=== PATIENT | female | born 1990 | race Caucasian/White ===

== ENCOUNTER 2025-06-09 21:14 | Emergency (ER) | payer OTHER, SELFPAY ==
[2025-06-09 21:23] VITALS: BP 122/64; PULSE 66; O2SAT 99
[2025-06-09 21:38] VITALS: BP 158/80; PULSE 68; RESP 18; TEMP 36.6; O2SAT 100; BMI 35.1
--- OUTSIDE RECORDS SUMMARY | 2025-06-09 22:21 | XMS_ITS | Clinical Summary ---
Author Organization [facility] Address [address] [place] [address] Phone Care Team Providers Care Medical Editor Name Role Phone Asha Castillo MD Primary Care Provider + Asha Castillo MD Unavailable [phone] Social History Tobacco Use Types Packs/Day Years Used Date Smoking Tobacco: Never Assessed Comments Unknown Sex and Gender Information Value Date Recorded Sex Assigned at Not on file Legal Sex Female 6:47 PM EDT Gender Identity Not on file Sexual Orientation Not on file Plan of Treatment Not on file Care Teams Medical Editor Relationship Specialty Start Date End Date Asha Castillo MD [address] [place] [id number] PCP - General 05/10/08 Asha Castillo MD [address] [place] [id number] PCP - Insurance PCP 05/10/08
--- OUTSIDE RECORDS SUMMARY | 2025-06-09 22:21 | XMS_ITS | Clinical Summary ---
Author Organization [facility] Address [address] [place] [address] Care Team Providers Care Barrel Lathe Operator Inside Name Role Phone Add, Provider Not In System Primary Care Provide r Unavailable Allergies Active Allergy Reactions Criticality Noted Date Comments Coconut Anaphylaxis High 05/02/2024 Erythromycin Rash Low 05/02/2024 Haloperidol Rash Low 05/02/2024 Kiwi Itching High 05/02/2024 Veneta Itching High 05/02/2024 Penicillin G Rash Low 05/02/2024 Tree Nuts Anaphylaxis High 05/02/2024 Oxcarbazepine Rash Low 05/02/2024 Social History Tobacco Use Types Packs/Day Years Used Date Smoking Tobacco: Never Assessed Comments No Sex and Gender Information Value Date Recorded Sex Assigned at Not on file Legal Sex Female 9:29 PM EDT Gender Identity Female 05/02/2024 2:24 PM EDT Sexual Orientation Bisexual 05/02/2024 2: 26 PM EDT Last Filed Vital Signs Vital Sign Reading Time Taken Comments Blood Pressure 121/68 05/02/2024 4:36 PM EDT Pulse 61 05/02/2024 4:36 PM EDT Temperature 36.7 C (98.1 F) 05/02/2024 2:11 PM EDT Respiratory Rate 18 05/02/2024 4:36 PM EDT Oxygen Saturation 100% 05/02/2024 4:36 PM EDT Inhaled Oxygen Concentration - - Weight 62.1 kg (137 lb) 05/02/2024 2:11 PM EDT Height - - Body Mass Index - - Plan of Treatment Not on file Insurance [facility] [place] [id number] Care Teams Barrel Lathe Operator Inside Relationship Specialty Start Date End Date Add, Provider Not In System PCP - General 11/14/06
--- NOTE | 2025-06-09 22:33 | ED_ITS ---
HPI - Female Genitourinary General Chief complaint: Urogenital-Female Stated complaint: Urinary retention Time Seen by Provider: 06/09/25 22:31 Source: patient and EMS Mode of arrival: EMS Limitations: no limitations History of Present Illness ED Provider: Brandon WEBER HPI Narrative: The patient is a 34-year-old female with a history of mental health disorder presenting to the ED from [facility] for evaluation of urinary retention. The patient reports she has experienced episodes of urinary retention often requiring 3-4 weeks of catheterization approximately 3 times a year for the past few years. Patient reports she has attempted to follow up with the Urology in the past but often fails to do so due to psychiatric inpatient admissions. The patient reports she has been able to urinate since Friday 06/08 at 17:00. The patient reports attempting to urinate without success, reports gradually worsening lower abdominal pain without associated fever/chills, nausea, vomiting, diarrhea, chest pain, shortness of breath, recent sick contacts, or recent trauma. The patient does advised she was told by me harvested they are unable to manage a Mcdonough catheter at that facility and she may require admission to a different facility while a Mcdonough catheter is in place. Related Data Home Medications ?Medication ?Instructions ?Recorded ?Confirmed acetaminophen 325 mg tablet 650 mg PO Q4H PRN Mild Cheyenne n (Scale 06/10/25 06/10/25 Score 1-4) albuterol sulfate 90 mcg/actuation 2 puff inhalation B ID PRN 06/10/25 06/10/25 aerosol inhaler Shortness Of Breath atomoxetine 40 mg capsule 40 mg PO DAILY 06/10/2504/27 buspirone 10 mg tablet 20 mg PO BEDTIME 06/10/25 calcium carbonate 500 mg PO Q4H PRN Heartburn 06/10/25 06/10/25 clonidine HCl 0.1 mg tablet 0.1 mg PO DAILY PRN Anxiet y 06/10/25 06/10/25 docusate sodium 100 mg tablet 100 mg PO DAILY PRN Cons tipation 06/10/25 06/10/25 gabapentin 300 mg capsule 300 mg PO DAILY 06/10/2504/27 guaifenesin 600 mg tablet, 1,200 mg PO Q12H PRN Cough 06/10/25 06/10/25 extended release 12 hr hydroxyzine pamoate 50 mg capsule 50 mg PO QID PRN Anx iety 06/10/25 06/10/25 lamotrigine 150 mg tablet 300 mg PO BEDTIME 06/10/25 0 06/10/25 loratadine 10 mg tablet 10 mg PO DAILY 06/10/2504/27 lurasidone 20 mg tablet 40 mg PO BEDTIME 06/10/25 melatonin 5 mg tablet 5 - 10 mg PO BEDTIME PRN ins omnia 06/10/25 06/10/25 ondansetron 8 mg disintegrating 8 mg PO TID PRN nausea 06/10/25 06/10/25 tablet pantoprazole 40 mg tablet,delayed 40 mg PO DAILY 06/1006/10/25 release prazosin 5 mg capsule 5 mg PO BEDTIME 06/10/2504/27 sennosides 8.6 mg tablet (senna) 17.2 mg PO DAILY PRN Constipation 06/10/25 06/10/25 Allergies Allergy/AdvReac Type Severity Reaction Status Date / Time azithromycin Allergy Unknown Verified 06/09/25 21:39 haloperidol (From Haldol) Allergy Unknown Verified 06/09/25 21:39 meloxicam Allergy Unknown Verified 06/09/25 21:39 Penicillins Allergy Unknown Verified 06/09/25 21:39 lithium AdvReac Unknown Verified 06/09/25 21:50 oxcarbazepine (From AdvReac Unknown Verified 06/09/25 21:50 Trileptal) Review of Systems 2 Review of Systems: Yes all other systems are reviewed and are negative PMFSH Social History Social History Use of substances other than those prescribed or required for medical reasons: No Advance Directives: No Advance Directives Information Provided: No Patient : No Physical Exam 2 Vital Signs: Vital Signs: Last Vital Signs Temp 98.2 F 06/11/25 05:38 Pulse 82 06/11/25 05:38 Resp 16 06/11/25 05:38 BP 121/63 06/11/25 05:38 Pulse Ox 97 06/11/25 05:38 O2 Del Method Room Air 06/11/25 05:38 BMI result Body Mass Index 35.1 CONSTITUTIONAL: The patient appears non-toxic, well nourished and in no acute distress. Vital signs as documented. HEAD: Atraumatic, normocephalic. EYES: EOMs grossly intact, pupils equal, conjunctiva clear, no exudate. ENT: Nares patent, no discharge. Airway patent, no audible stridor, visible mucosa is pink and moist without noted lesions. NECK: Trachea is midline, no obvious masses or gross abnormalities. CHEST: Symmetric movement, normal appearance. LUNGS: LS present and CTAB, no w/r/r. Non-labored work of breathing. CARDIAC: Regular Rhythm, S1/S2 appreciated, no murmurs, rubs or gallops. ABDOMEN: Abdomen soft and non-tender x4 quadrants, exam performed after bladder scan with subsequent Mcdonough catheter placement. No palpable masses or organomegaly. : Deferred. EXTREMITIES: Normal tone, moves all extremities spontaneously without reported pain. No obvious acute injury or deformity noted. NEURO: Alert and oriented x3, CN II-XII appear grossly intact. Cerebellar Functioning grossly intact. No obvious sensory or motor deficits. Speech clear and appropriate. PSYCH: Mildly anxious affect, appropriate eye contact, pressured speech, with some tangential speech process but otherwise appropriate response to questioning. No reported suicidality or homicidality. SKIN: Warm, dry, color appropriate, normal turgor. No rashes noted. Course Reevaluation(s) Reevaluation #1: Crisis team requested psych consult Time: 10:36 Reevaluation #2: 11:25 AM 06/10/2025 (Dr. John Wu): Meds ordered Time: :25 Reevaluation #3: 9:25 AM 06/11/2025 (Dr. John Wu): Cleared for discharge Time: : Medications Administered Generic Name Dose Route Start Last Admin Trade Name Freq PRN Reason Stop Dose Admin Acetaminophen 650 mg 06/10/25 11:24 06/10/25 22:05 Acetaminophen 325 Mg Tablet PO 650 mg Q4H PRN Administration Mild Pain (Scale Score 1-4) Buspirone HCl 20 mg 06/10/25 21:00 06/10/25 21:58 Buspirone Hcl 10 Mg Tablet PO 20 mg BEDTIME LI Administration Clonidine HCl 0.1 mg 06/10/25 11:24 06/10/25 12:21 Clonidine Hcl 0.1 Mg Tablet PO 0.1 mg DAILY PRN Administration Anxiety Protocol Gabapentin 300 mg 06/10/25 12:00 06/10/25 12:21 Gabapentin 300 Mg Capsule PO 300 mg DAILY LI Administration Hydroxyzine HCl 50 mg 06/10/25 11:24 06/10/25 22:01 Hydroxyzine Hcl 50 Mg Tablet PO 50 mg QID PRN Administration Anxiety Lamotrigine 300 mg 06/10/25 13:00 06/10/25 12:20 Lamotrigine 100 Mg Tablet PO 300 mg BEDTIME LI Administration Lurasidone HCl 40 mg 06/10/25 21:00 06/10/25 21:59 Lurasidone Hcl 40 Mg Tablet PO 40 mg BEDTIME LI Administration Melatonin 6 mg 06/10/25 12:00 06/10/25 21:58 Melatonin 3 Mg Tablet PO 6 mg BEDTIME PRN Administration insomnia Nicotine Polacrilex 2 mg 06/10/25 10:10 06/11/25 05:44 Nicotine Polacrilex 2 Mg Gum BUCCAL 2 mg Q2H PRN Administration Nicotine Cravings Prazosin HCl 5 mg 06/10/25 21:00 06/10/25 23:03 Prazosin Hcl 5 Mg Capsule PO 5 mg BEDTIME LI Administration Protocol Discontinued Medications Generic Name Dose Route Start Last Admin Trade Name Freq PRN Reason Stop Dose Admin Lorazepam 1 mg 06/10/25 01:42 06/10/25 01:55 Lorazepam 1 Mg Tablet PO 06/10/25 01:43 1 mg ONCE ONE Administration Medical Decision Making Medical Decision Making MDM Narrative: 11:52 PM 06/09/2025 (Sadia WEBER): The patient is a 34-year-old female presenting to the ED for evaluation of acute urinary retention which she states has occurred 2-3 times annually for the past few years, however she has been unable to follow up with Urology due to recurrent psychiatric inpatient admissions. The patient presents to the ED today from [facility] for evaluation of inability urinate since 17:00 on Wednesday. The patient arrived to the ED with a bladder scan of 1100, Mcdonough catheter was placed and patient reports significant improvement in pain. On exam patient has no abdominal tenderness, patient is nontoxic appearing. Patient will be sent for UA, and basic laboratory evaluation. Pending unremarkable laboratory evaluation the patient may require crisis team consultation to facilitate returned to [facility] versus placement at a inpatient psychiatric facility capable of managing Mcdonough catheters. Admission/Observation Consideration of admission/observation: Escalation of care including admission/observation considered Lab Data 06/09/25 23:46 06/10/25 00:10 Labs: Lab Results 06/09/25 06/10/25 06/10/25 Range/Units 23:46 00:10 00:45 WBC 9.4 (4.8-10.8) X10*3/uL RBC 5.31 (4.20-5.50) X10*6/uL Hgb 14.6 (12.0-16.0) g/dl Hct 44.0 (37.0-47.0) % MCV 82.9 (80.0-98.0) fL MCH 27.5 (27.0-33.0) pg MCHC 33.2 (31.0-35.0) g/dl RDW 15.6 (11.0-16.0) % Plt Count 199 (160-400) X10*3/uL MPV 10.9 (9.4-12.3) fL Immature Gran % (Auto) 0.4 (0.0-0.4) % Neut % (Auto) 75.5 H (45-73) % Lymph % (Auto) 17.0 L (20-40) % Gladwin % (Auto) 6.0 (2-11) % Eos % (Auto) 0.6 (0-4) % Baso % (Auto) 0.5 (0-2) % Lymph # (Auto) 1.6 (1.2-4.9) X10*3/uL Gladwin # (Auto) 0.6 (0.1-1.2) X10*3/uL Eos # (Auto) 0.1 (0.0-0.4) X10*3/uL Baso # (Auto) 0.1 (0.0-0.2) X10*3/uL Abs Immat Gran (auto) 0.04 H (0.00-0.03) X10*3/uL Absolute Neuts (auto) 7.1 (2.0-8.3) x10*3/uL Absolute Nucleated RBC 0.000 (0.0-0.012) X10*3/uL Nucleated RBC % (auto) 0.0 (0.0-0.2) /100WBC Smear Tech's Comments VERIFIED Sodium 141 (135-145) mmol/L Potassium 3.8 (3.3-5.1) mmol/L Chloride 110 H (96-108) mmol/L Carbon Dioxide 20 L (22-29) mmol/L Anion Gap 15 (12-20) BUN 12 (9-16) mg/dL Creatinine 0.81 (0.5-1.4) mg/dL Estim Creat Clear Calc 93.4 Estimated GFR > 60 Random Glucose 84 (60-115) mg/dL Calcium 9.5 (8.4-10.2) mg/dL Total Bilirubin 0.2 (0.0-1.0) mg/dL AST 17 (5-31) U/L ALT 19 (0-31) U/L Alkaline Phosphatase 82 (39-117) U/L Total Protein 7.5 (6.5-8.0) g/dL Albumin 4.8 (3.5-5.0) g/dL Urine Color Yellow Urine Appearance Clear Urine pH 7.0 (5.0-9.0) Ur Specific Woodlyn <= 1.005 (1.005-1.025) Urine Protein Negative (Neg-Trace) mg/dL Urine Glucose (UA) Negative (Negative) mg/dL Urine Ketones Negative (Negative) mg/dL Urine Blood Negative (Negative) Urine Nitrite Negative (Negative) Ur Leukocyte Esterase Negative (Negative) Discharge Plan Discharge Clinical Impression: Acute urinary retention Patient Disposition: Home, Self-Care Instructions: Neurogenic Bladder (ED) Additional Instructions: Evaluated with urinary retention of holding more than 1 L of urine, Mcdonough catheter was placed in ER, evaluated by crisis team and cleared for discharge Mcdonough catheter care on outpatient basis by patient/re-evaluation by PCP or urologist, urinary retention maybe due to multiple medications You were seen in our Emergency Department today for treatment of a behavioral health issue. It is important after your visit that you follow up with either your behavioral health provider or a primary care doctor within 7 days.? If you have trouble finding a therapist you can reach out to [address] [phone] The National Suicide and Crisis Lifeline can be reached 7 days a week 24 hours a day.? Call 988 to speak with someone.? Return for any worsening symptoms or concerns such as thoughts of self harm or harm to others. Please call 911 if you feel your mental health is worsening.? Prescriptions: No Action lamotrigine 150 mg tablet 300 mg PO BEDTIME sennosides [senna] 8.6 mg tablet 17.2 mg PO DAILY PRN (Reason: Constipation) clonidine HCl 0.1 mg tablet 0.1 mg PO DAILY PRN (Reason: Anxiety) acetaminophen 325 mg Tablet 650 mg PO Q4H PRN (Reason: Mild Pain (Scale Score 1-4)) hydroxyzine pamoate 50 mg Capsule 50 mg PO QID PRN (Reason: Anxiety) ondansetron 8 mg tablet,disintegrating 8 mg PO TID PRN (Reason: nausea) prazosin 5 mg capsule 5 mg PO BEDTIME pantoprazole 40 mg Tablet,Delayed Release (Dr/Ec) 40 mg PO DAILY buspirone 10 mg tablet 20 mg PO BEDTIME gabapentin 300 mg capsule 300 mg PO DAILY calcium carbonate 500 mg calcium (1,250 mg) Tablet,Chewable 500 mg PO Q4H PRN (Reason: Heartburn) albuterol sulfate 90 mcg/actuation Hfa Aerosol Inhaler 2 puff INHALATION BID PRN (Reason: Shortness Of Breath) docusate sodium 100 mg Tablet 100 mg PO DAILY PRN (Reason: Constipation) loratadine 10 mg Tablet 10 mg PO DAILY atomoxetine 40 mg Capsule 40 mg PO DAILY melatonin 5 mg tablet 5 - 10 mg PO BEDTIME PRN (Reason: insomnia) lurasidone 20 mg tablet 40 mg PO BEDTIME guaifenesin 600 mg Tablet Extended Release 12hr 1,200 mg PO Q12H PRN (Reason: Cough) Print Language: Lebanese
[2025-06-09 23:57] LABS: Hematocrit 44.0 % (37.0-47.0); Hemoglobin 14.6 g/dl (12.0-16.0); Imm Gran Abs Auto 0.04 X10*3/uL (0.00-0.03); Imm Gran Pct Auto 0.4 % (0.0-0.4); Lymphocytes Absolute Auto 1.6 X10*3/uL (1.2-4.9); MANUAL DIFF FLAG SCAN; Mean Corpuscular HGB Conc 33.2 g/dl (31.0-35.0); Mean Corpuscular Hemoglobin 27.5 pg (27.0-33.0); Mean Corpuscular Volume 82.9 fL (80.0-98.0); NRBC Abs Auto 0.000 X10*3/uL (0.0-0.012); NRBC Pct Auto 0.0 /100WBC (0.0-0.2); PLT CLUMP 1; Platelet Count 199 X10*3/uL (160-400); Red Blood Count 5.31 X10*6/uL (4.20-5.50); SCAN SMEAR FLAG 1; White Blood Count 9.4 X10*3/uL (4.8-10.8)
[2025-06-10] VITALS (9 sets, daily range): BP systolic 103–115; BP diastolic 46–67; PULSE 58–71; RESP 15–18; TEMP 36.3–37; O2SAT 97–98
[2025-06-10 00:32] LABS: Alanine Aminotransferase 19 U/L (0-31); Albumin Level 4.8 g/dL (3.5-5.0); Alkaline Phosphatase 82 U/L (39-117); Anion Gap 15 (12-20); Aspartate Amino Transferase 17 U/L (5-31); Blood Urea Nitrogen 12 mg/dL (9-16); Calcium 9.5 mg/dL (8.4-10.2); Carbon Dioxide 20 mmol/L (22-29); Chloride 110 mmol/L (96-108); Creatinine Clr Calc Pharmacy 93.4; Estimated Glomerular Filt Rate > 60; Potassium 3.8 mmol/L (3.3-5.1); Sodium 141 mmol/L (135-145); Total Protein 7.5 g/dL (6.5-8.0)
[2025-06-10 00:52] LABS: Appearance Urine Clear; Glucose Urine UA Negative (Negative); PH 7.0 (5.0-9.0); Specific Gravity - Urine <= 1.005 (1.005-1.025)
--- NOTE | 2025-06-10 03:12 | MHC.EDTECH ---
2000ml emptied from cath bag when tavera was placed. pt reported relief at that time
--- NOTE | 2025-06-10 06:35 | MHC.EDTECH ---
550ml emptied from tavera at this time
--- NOTE | 2025-06-10 07:30 | PC.NURSE ---
Pt presented from [facility] after reports of not being able to urinate since Wednesday. Pt has history of urinary retention and required tavera catheter. Pt had tavera catheter placed with immediate relief of discomfort. T/w spoke with Regina glass cut off supervisor at [facility] to give update. Per Regina(glass cut off supervisor) at [facility] they would not be able to take pt back with tavera catheter. surgical brace maker and Provider made aware and care team consult placed. Pt is aware of plan at this time.
--- NOTE | 2025-06-10 10:11 | PHA.MEDREC ---
Pharmacy Consult ? Medication Reconciliation Pharmacy has completed the medication reconciliation. Utilized list from [facility] to confirm home meds.
--- NOTE | 2025-06-10 13:36 | MHC.CARE ---
Pt seen by CARE team and verbal consult done with hospital psychiatry team Dr. Holden, disposition is for discharge tomorrow 06/10/25 to [facility] so patient can brick picker her belongings. Pt to call [facility] to coordinate a ride home from [facility] or [facility] worker reports they can get patient a Lyft home if needed from [facility].
--- NOTE | 2025-06-10 19:22 | PC.NURSE ---
this RN assumed care of this pt @1900, pt resting quietly in hospital stretcher, no apparent distress noted at this time
--- NOTE | 2025-06-10 22:06 | PC.NURSE ---
pt stated she has backk pain 03/13 at this time, specifically requesting Tylenol for pain relief, medicated per MAR
[2025-06-11 05:38] VITALS: BP 121/63; PULSE 82; RESP 16; TEMP 36.8; O2SAT 97
[2025-06-11 10:11] VITALS: BP 120/66; PULSE 77; RESP 16; TEMP 36.6; O2SAT 97
--- NOTE | 2025-06-11 10:19 | PC.NURSE ---
Pt DC'd to lobby to await transport home to [facility]; pt given leg bag and nighttime fley bag for home; pt able to demonstrate knowledge of how to properly use and change bags; pt dc'd with all belongings
[2025-06-11 10:20] VITALS: BP 120/66; PULSE 77; RESP 16; TEMP 36.6; O2SAT 97
== END 2025-06-11 09:45 | disposition home or self-care (01) ==
PROVIDERS: Physician Assistant; Emergency Provider Emergency Medicine
DX: R33.9 Retention of urine, unspecified (principal)
CPT/HCPCS: 36415; 51702; 80053; 81003; 85025; 99285; S9485